=== PATIENT | male | born 1975 | race African-American/Black ===

== ENCOUNTER 2019-10-30 22:45 | Emergency (ER) | payer MEDICAID ==
[~2019-10-30] VITALS: Ht 182.9 cm; Wt 74.8 kg
--- NOTE | 2019-10-30 23:18 | NUR ---
PT CAME TO ER BED 14 BIB RA FROM [facility] C/O DIZZINESS. PATIENT STATES THAT HE FEELS DIZZY AND HAS A HEADACHE. NO SOB. BREATHING EVENLY AND UNLABORED. PATIENT IS ANXIOUS. AAOX3. VSS Addendum: 10/30/19 at 2336 by SANTANA PATIENT ENDORSES SI, BUT WITH NO PLAN
--- NOTE | 2019-10-30 23:25 | NUR ---
blood collected and sent with program services assistant
[2019-10-30 23:27] LABS: BASOPHILS # (AUTO) 0.1 /CMM (0.0-0.2); BASOPHILS % (AUTO) 2.3 % (0.0-2.0); EOSINOPHILS % (AUTO) 1.1 % (0.0-6.0); HEMATOCRIT 48 % (39-51); HEMOGLOBIN 15.8 g/dL (13.5-17.5); LYMPHOCYTES # (AUTO) 1.2 /CMM (0.8-4.8); LYMPHOCYTES % (AUTO) 32.5 % (20.0-44.0); MEAN CORPUSCULAR HGB CONC 33 g/dl (31.0-36.0); MEAN CORPUSCULAR VOLUME 96 fL (80-96); MONOCYTES # (AUTO) 0.3 /CMM (0.1-1.30); NEUTROPHILS % (AUTO) 55.1 % (43.0-81.0); PLATELET COUNT (AUTO) 314 /CMM (150-450); RED BLOOD CELL COUNT(AUTO) 4.99 MIL/uL (4.5-6.0); WHITE BLOOD COUNT (AUTO) 3.6 K/uL (4.3-11.0)
[2019-10-30] MEDS ORDERED: IV NS 0.9% 1,000 ML BAG IV ONE (23:30)
[2019-10-30 23:39] LABS: CALCIUM, SERUM 9.3 mg/dL (8.5-10.1); CARBON DIOXIDE 31 mmol/L (21-32); CHLORIDE 101 mmol/L (98-107); CREATININE 0.9 mg/dL (0.6-1.3); GLUCOSE 71 mg/dL (74-106); POTASSIUM 3.8 mmol/L (3.5-5.1); SODIUM SERUM 139 mmol/L (136-145); UREA NITROGEN, BLOOD 6 mg/dL (7-18)
[2019-10-30 23:50] LABS: ACETAMINOPHEN 0 ug/ml (10-30); ALANINE AMINOTRANSFERASE 26 U/L (12-78); ALBUMIN 3.6 g/dL (3.4-5.0); ALCOHOL, BLOOD < 3 mg/dL (0-0); ALKALINE PHOSPHATASE 93 U/L (46-116); ASPARTATE AMINOTRANSFERASE 29 U/L (15-37); BILIRUBIN,DIRECT 0.2 mg/dL (0.0-0.2); BILIRUBIN,TOTAL 0.8 mg/dL (0.2-1.0); SALICYLATE 2.3 mg/dL (2.8-20.0); TOTAL PROTEIN, SERUM 7.4 g/dL (6.4-8.2)
[2019-10-31 01:39] LABS: APPEARANCE,URINE Clear (CLEAR); BILIRUBIN,URINE Negative (NEGATIVE); BLOOD, URINE Trace-intact Ery/uL (NEGATIVE); COLOR,URINE Yellow (YELLOW); KETONES,URINE Negative (NEGATIVE); LEUKOCYTE ESTERASE ,URINE Negative (NEGATIVE); NITRITE, URINE Negative (NEGATIVE); PH,URINE 6.5 (5.0-8.0); PROTEIN,URINE 30 mg/dl (NEGATIVE); UGLUCOSE Negative (NEGATIVE)
--- NOTE | 2019-10-31 02:12 | NUR ---
PATIENT IS ASLEEP. EASILY AROUSED THROUGH MECHANICAL AND VERBAL STIMULI. NO SOB. BREATHING EVENLY AND UNLABORED. CONNECTED TO MONITOR. SITTER AT BEDSIDE.
--- NOTE | 2019-10-31 03:13 | NUR ---
Pt accepted to [facility] after [address] Kohil. [address], # for report [phone]
--- NOTE | 2019-10-31 04:43 | NUR ---
CALLED [facility] FOR S TRANSPORT TO [facility]. ETA: [id number] TRIP #: [id number]
[2019-10-31 05:11] LABS: BACTERIA,URINE Few /HPF (None Seen); SQUAMOUS EPITHELIAL CELL,UR Rare /HPF (None Seen); WBC,URINE 0-2 /HPF (0-3)
--- NOTE | 2019-10-31 09:48 | NUR ---
called ambuln[facility] for eta update. eta 6 mins.
[2019-10-31 10:34] VITALS: BP 110/60
--- NOTE | 2019-10-31 10:35 | NUR ---
Patient picked up by [facility] in no distress accompanied by 2 EMT, denies any pain or discomfort.
== END 2019-10-31 10:35 ==
LOC: EDBD 22:48 → ER 22:48
DX: R45.851 Suicidal ideations (principal); F19.10 Other psychoactive substance abuse, uncomplicated; R42 Dizziness and giddiness; Z59.0 Homelessness
CPT/HCPCS: 36415; 70450; 80048; 80076; 80305; 80307; 80329; 81001; 85025; 93005; 96360; 99285; G0480; J7030; 81000-TC